=== PATIENT | female | born 1930 | race Caucasian/White ===

== ENCOUNTER 2019-12-13 07:25 | Day surgery (SDC) | payer MEDICARE ==
[~2019-12-13] VITALS: Ht 165.1 cm; Wt 62.6 kg
[~2019-12-13 07:25] MED LIST: ALBU108A5 IN; CARV6.2551 PO; FURO20TA3 PO; GABA100C9 PO; IRBE300T43 PO; POTA-180 PO; PRAV20TA3 PO; RIVA20TA PO; ZOLP5TAB5 PO
[2019-12-13] MEDS ORDERED: fentaNYL CITRATE 100 MCG/2 ML VL ONE (08:51)
[2019-12-13] MEDS ORDERED: NITROGLYCERIN 5MG/ML 10ML VIAL IV ONE (08:51)
[2019-12-13] MEDS ORDERED: MIDAZOLAM HCL 1MG/1ML-2 ML VIAL ONE (08:51)
[2019-12-13] MEDS ORDERED: VERAPAMIL 2.5MG/ML INJ 2ML VIAL IV ONE (08:51)
[2019-12-13] MEDS ORDERED: SODIUM CHL 0.9% 50 ML ONE (08:53)
[2019-12-13] MEDS ORDERED: IODIXANOL 320MG/ML 100ML BTL IV ONE (08:54)
[2019-12-13] MEDS ORDERED: HEPARIN SODIUM (PORCINE) 5000 UNITS/ML 1ML VIAL ONE (09:00)
[2019-12-13] MEDS ORDERED: HYDROcodone-ACET 5/325MG TAB PO PRN (09:45)
[2019-12-13] MEDS ORDERED: ONDANSETRON HCL 4 MG/2 ML VIAL IV PRN (09:45)
[2019-12-13] MEDS ORDERED: ACETAMINOPHEN 500 MG TAB PO PRN (09:45)
== END 2019-12-13 12:25 | disposition home or self-care (01) ==
LOC: CATH 07:25
PROVIDERS: ATTEND Internal Medicine Cardiovascular Disease
DX: R06.02 Shortness of breath (principal); I34.0 Nonrheumatic mitral (valve) insufficiency; I10 Essential (primary) hypertension; E78.5 Hyperlipidemia, unspecified; E11.9 Type 2 diabetes mellitus without complications; Z79.899 Other long term (current) drug therapy; Z20.828 Contact with and (suspected) exposure to other viral communicable diseases; Z98.890 Other specified postprocedural states
CPT/HCPCS: 93458; C1769; C1887; C1894; J1644; J2250; J3010; J3490; Q9967; U0003; 99152